=== PATIENT | male | born 1990 | race African-American/Black ===

== ENCOUNTER 2023-06-27 10:40 | Emergency (ER) | payer SELFPAY ==
[2023-06-27 10:55] VITALS: BP 127/76
[2023-06-27 11:16] LABS: % Basophils 0.6 % (0-2); % Eosinophils 0.9 % (0-6); % Immature Granulocytes 0.3 % (0-0.5); % Lymphocytes 14.9 % (20.5-51.1); % Monocytes 6.9 % (1.7-9.3); % Neutrophils 76.4 % (42.2-75.2); Absolute Basophils 0.1 10^3/uL (0-0.2); Absolute Eosinophils 0.1 10^3/uL (0-0.7); Absolute Lymphocytes 1.5 10^3/uL (1.2-3.4); Absolute Monocytes 0.7 10^3/uL (0.1-0.6); Absolute Neutrophils 7.6 10^3/uL (1.4-6.5); Hematocrit 37.1 % (39.0-52.0); Mean Corpuscular Hgb 31.8 pg (27.0-31.0); Mean Corpuscular Volume 90.7 fL (80.0-94.0); Mean Platelet Volume 9.9 fL (7.4-10.4); Nucleated Red Blood Cells % 0 % (-); Platelet Count 317 10^3/uL (130-400); Red Blood Cell Count 4.09 10^6/uL (4.70-6.10); Red Cell Dist. Width 12.5 % (11.5-14.5)
[2023-06-27 11:35] LABS: ALT (SGPT) 53 U/L (0-50); AST (SGOT) 69 U/L (17-59); Albumin 4.2 g/dl (3.5-5.0); Alkaline Phosphatase 65 U/L (38-126); Blood Urea Nitrogen 11 mg/dl (9-20); Calcium 9.3 mg/dl (8.4-10.2); Carbon Dioxide 27 mmol/L (22-30); Chloride 105 mmol/L (98-107); Glucose 90 mg/dl (70-99); Potassium 4.5 mmol/L (3.5-5.1); Sodium 135 mmol/L (135-145); Total Bilirubin 0.3 mg/dl (0.2-1.3); eGFR > 60.00
[2023-06-27 12:08] LABS: Urine Albumin Negative (Neg - Trace); Urine Bilirubin Negative (Negative); Urine Color Yellow; Urine Glucose Negative (Negative); Urine Ketone Negative (Negative); Urine Leukocyte Negative (Negative); Urine Nitrite Negative (Negative); Urine Occult Blood Negative (Negative); Urine Urobilinogen Negative (Neg - 1+); Urine pH 6.5 (5.0-9.0)
[2023-06-27 12:29] LABS: Amphetamines Negative (Negative); Barbiturates Negative (Negative); Benzodiazepines Negative (Negative); Buprenorphine Negative (Negative); Cocaine Negative (Negative); Marijuana Negative (Negative); Methadone Negative (Negative); Methamphetamines Negative (Negative); Opiates Negative (Negative); Phencyclidine Negative (Negative); Tricyclic Antidepressants Negative (Negative)
[2023-06-27 13:15] LABS: COVID-19 Antigen Negative (Negative)
--- NOTE | 2023-06-27 13:24 | ED.GENMED ---
History of Present Illness
General
Chief Complaint: Anxiety
Source: patient
Exam Limitations: none
Time Seen by Provider: 06/27/23 12:05
Nursing documentation reviewed up to this point in time: agreed with
Travel History
Have you had any contact with someone who has COVID-19?: No
Do you have any symptoms of coronavirus? Fever > 100 degrees, chills, cough, shortness of breath, sore throat, loss of taste or smell, muscle aches, or headache?: No
History of Present Illness
History of Present Illness:
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 Patient apparently is from [place] and has
relocated out to this area in the last week or 2 although he is very vague about details. Patient said 'I want to start over and get my life together.' He does report that he was using drugs and alcohol more frequently up until recently. He came
out to [facility] to stay with some friends of his. He says he is staying in their apartments and he is not living on the street however he does report he has not showered in at least a week. He also admits that he was at [facility] in and out over the last 3 or 4 days, he cannot be quite sure on details. It sounds as if he was requesting inpatient rehab, he 'some saying that his insurance was an issue. He says that he was feeling like he was not being listened to.
He asked for us food and he got a sandwich and this was upsetting to him. It is unclear when the last time the patient was seen but it sounds like it was within the last 24 hours and he may have eloped. He was picked up by EMS but I am not sure
the details of that. He is calm and cooperative now, he says that his anxiety that he feels is much less than when he presented here.
He told triage his heart rate was pounding out of his chest but he no longer feels that way. He denies any suicidal thoughts. He admits his last drug and alcohol use was probably over 24 hours ago. He does not drink daily alcohol and has never
had an alcohol withdrawal seizure. He smokes meth but not regularly. Patient also developed a cough over the last week which is dry. Although he feels anxious he has no hallucinations
Past History
Past History
ED Past Medical History: Psychiatric
Social History
Tobacco: Smoker
Alcohol: Binge drinker
Drug: Other (Methamphetamine)
Employment: Employed ( patient says he is employed but he is on a medical leave right now, the details of this are unclear)
Phy Exam
Physical Exam
Physical Exam:
GENERAL: Alert , in no apparent distress
, And cooperative, patient has disheveled appearance, malodorous
EYE: pupils equal and reactive
NECK: Supple
ENT: o/p clr, mmm.
CARDIAC: Regular rate and rhythm .
LUNGS: Clear breath sounds bilaterally, no acute respiratory distress, no wheezes/rales/rhonchi, occasional dry cough
ABDOMEN: Soft, without focal tenderness, no r/g, no cvat, normal bowel sounds
NEUROLOGICAL: Alert and oriented, no focal neuro deficits
SKIN: Warm and dry, skin intact.
MUSCULOSKELETAL: No edema, well perfused. neg josé miguel's sign
PSYCH: Normal and appropriate interaction.
Not suicidal, not hallucinating, not delusional, somewhat difficult to get history from but this seems to be because patient does not wish to disclose details
Course
Orders/Labs/Results
Orders:
Orders
06/27/23 11:09
Complete Blood Count/With Diff Urgent
Comprehensive Metabolic Panel Urgent
06/27/23 11:56
Urinalysis Reflex To Culture Urgent
Date Specimen was Collected: 06/27/23
Time Specimen was Collected: 10:58
Urine Drug Abuse Screen Urgent
Date Specimen was Collected: 06/27/23
Time Specimen was Collected: 10:58
06/27/23 12:29
Electrocardiogram (*1) Urgent
Reason for Study: Chest Pain
EKG- Treatment ONCE
06/27/23 12:30
CR Chest - 2 Views Urgent
Comment:
Reason For Exam: cough
06/27/23 12:38
COVID-19 Antigen Urgent
Source: Nasal Swab
Influenza A+B Rapid Molecular Urgent
SAGE Source: Nasal Swab
Specimen Description:
06/27/23 16:14
Acetaminophen [Tylenol] 650 mg PO NOW STA
06/27/23 17:18
Ibuprofen [Motrin] 800 mg PO NOW STA
Abnormal Lab Results
06/27/23
11:09
RBC 4.09 L 10^6/uL
(4.70-6.10)
Hct 37.1 L %
(39.0-52.0)
MCH 31.8 H pg
(27.0-31.0)
Absolute Neuts (auto) 7.6 H 10^3/uL
(1.4-6.5)
Absolute Monos (auto) 0.7 H 10^3/uL
(0.1-0.6)
Neutrophils % 76.4 H %
(42.2-75.2)
Lymphocytes % 14.9 L %
(20.5-51.1)
AST 69 H U/L
(17-59)
ALT 53 H U/L
(0-50)
06/27/23 11:09
06/27/23 11:09
Vital Signs
Initial and Last Documented VS:
Initial Vital Signs
Temp Pulse Resp BP Pulse Ox
98.0 F 98 16 127/76 98
06/27/23 10:55 06/27/23 10:55 06/27/23 10:55 06/27/23 10:55 06/27/23 10:55
Last Documented Vital Signs
Temp Pulse Resp BP Pulse Ox
98.0 F 83 16 126/81 100
06/27/23 17:57 06/27/23 17:57 06/27/23 17:57 06/27/23 17:57 06/27/23 17:57
MDM/Problems Addressed
Differential Diagnosis Includes:
COVID, flu, upper respiratory infection, drug dependence, psychiatric illness, anxiety
MDM/Problems Addressed:
32-year-old male with reported bipolar and anxiety not currently medicated not a current resident of [facility] here for anxiety symptoms which have been ongoing, patient since has been in and out of another ER for the same feelings requesting
detox or rehab for his drug and alcohol addiction as well as his mental illness. He has no reported suicidal thoughts, is not hallucinating. He is not currently intoxicated. He does have a dry cough, clear lungs, flu and COVID were negative. His
EKG sinus rhythm with sinus arrhythmia, I am not concerned about alcohol withdrawal at this point, patient says he does not drink daily, he has a low CIWA score.
He is requesting to talk to crisis about his addiction and mental health.
He is medically cleared, he likely has a viral upper respiratory infection
kayli ignacio was able to place patient
he was discharged to an [facility] where he would be taken to the facility
*Critical Care Note
Total Time (30-74mins, 75-104mins- exclusive of procedures): Not Applicable
ED Attending Note
-
Portions of this chart may have been created with voice recognition software.� Occasional wrong word or��sound alike� substitutions may have occurred due to the inherent limitations of voice recognition software.
Discharge Plan
Departure
Patient Disposition: Psych Facility
Date of Disposition: 06/27/23
Time of Disposition: 17:54
Patient with high blood pressure during this ER visit?: No
Condition: Fair
Covid-19: Not Applicable
Discharge Problem:
Drug abuse, Anxiety
Instructions: Anxiety, Adult (DC), Polysubstance Use Disorder (DC)
Referrals:
NONE,* [Family Provider] -
Activity Restrictions/Additional Instructions:
You have been accepted at the [facility]. Good luck with your treatment. You are medically cleared.
Interventions
Interventions:
*Risk Screen - Suicide Last Done: 06/27/23 11:30
*General Assessment Last Done: 06/27/23 11:30
*Neglect/Abuse Screening Last Done: 06/27/23 11:30
ED- Fall Risk Assessment Last Done: 06/27/23 11:30
*ED COVID-19 Vaccine History Last Done: 06/27/23 10:55
*Nursing Disposition Last Done: 06/27/23 18:01
ED-Psychological Assessment Last Done: 06/27/23 11:30
Discharge Date and Time
Discharge Date/Time: 06/27/23 18:01
[2023-06-27 13:27] LABS: Urine Character Clear (Clear)
[2023-06-27] MEDS: TYLENOL 650 MG PO (16:21)
[2023-06-27] MEDS: MOTRIN 800 MG PO (17:32)
[2023-06-27 17:57] VITALS: BP 126/81
== END 2023-06-27 18:01 ==
LOC: EMR 10:40
PROVIDERS: Emergency Medicine; Physician Assistant; EMERGENCY PHYSICIAN Emergency Medicine
DX: F15.10 Other stimulant abuse, uncomplicated (principal); F10.10 Alcohol abuse, uncomplicated; F41.9 Anxiety disorder, unspecified; Z11.52 Encounter for screening for COVID-19
CPT/HCPCS: 99285; 71046; 80053; 80306; 81003; 85025; 87502; 87811; 93005